=== PATIENT | female | born 1995 | race African-American/Black ===

== ENCOUNTER 2017-12-24 09:21 | Emergency (ER) | payer OTHER ==
[2017-12-24 09:32] VITALS: BP 116/78; PULSE 57; TEMP 97.5; BMI 37.3
--- NOTE | 2017-12-24 10:18 | PDOC ---
History of Present Illness - General Chief Complaint: Headache Stated Complaint: NAUSEA, HEADACHE Time Seen by Provider: 12/24/17 09:51 History Source: Patient Exam Limitations: No Limitations - History of Present Illness Initial Comments: 12/24/17 10:12 The patient is a 22F with a PMH of asthma who presents to the ER complaining of nausea, abdominal pain, and headache. The patient states that she's had constant (possibly intermittent) nausea x 2 weeks. She believes that she might have caught a "stomach bug" from her son who had nausea, vomited once, and felt better. The patient denies any vomiting. She also complains of sharp periumbilical abdominal pain, intermittent, worse with milk and and spicy foods , and not alleviated by anything. The patient also complains about a headache that is constant, 3 days, bitemporal, and not exacerbated or alleviated by anything. Of note, she states that she has worked the past 3 overnights Past History - Past Medical History Allergies/Adverse Reactions: Allergies Allergy/AdvReac Type Severity Reaction Status Date / Time No Known Allergies Allergy Verified 12/24/17 09:29 Home Medications: Ambulatory Orders Doxycycline Hyclate 100 mg PO BID #13 tablet 12/24/17 Ondansetron [Zofran *Odt*] 8 mg SL TID #20 od.tablet 12/24/17 Polyethylene Glycol 3350 [Miralax (For Daily Use) -] 17 gm PO DAILY #1 bottle COPD: No Other medical history: syncope - Immunization History Immunization Up to Date: Yes - Suicide/Smoking/Psychosocial Hx Smoking History: Never smoked Have you smoked in the past 12 months: No Information on smoking cessation initiated: No Hx Alcohol Use: No Substance Use Type: None Review of Systems - Review of Systems Able to Perform ROS?: Yes Comments:: 12/24/17 10:59 GENERAL/CONSTITUTIONAL: No fever or chills. No weakness. HEAD, EYES, EARS, NOSE AND THROAT: No change in vision. No ear pain or discharge. No sore throat. CARDIOVASCULAR: No chest pain, palpitations, or lightheadedness. RESPIRATORY: No cough, wheezing, shortness of breath, or hemoptysis. GASTROINTESTINAL: Positive for nausea and abdominal pain. No vomiting, diarrhea , or constipation. GENITOURINARY: No dysuria, frequency, hematuria, or change in urination. MUSCULOSKELETAL: No joint or muscle swelling or pain. No neck or back pain. SKIN: No rash or lesions. NEUROLOGIC: Positive for headache. No numbness, tingling, weakness, loss of consciousness, or change in strength/sensation. ENDOCRINE: No increased thirst. No abnormal weight change. HEMATOLOGIC/LYMPHATIC: No anemia, easy bleeding, or history of blood clots. ALLERGIC/IMMUNOLOGIC: No hives or skin allergy. Is the patient limited [place]ian proficient: No *Physical Exam - Vital Signs Last Vital Signs Temp Pulse Resp BP Pulse Ox 97.5 F L 57 L 18 116/78 100 12/24/17 09:29 12/24/17 09:29 12/24/17 09:29 12/24/17 09:29 12/24/17 09:29 - Physical Exam Comments: 12/24/17 11:00 GENERAL: Well developed, well nourished. Awake and alert. No acute distress. HEENT: Normocephalic, atraumatic. Hearing grossly normal. Moist mucous membranes. PERRLA, EOMI. No conjunctival pallor. Sclera are non-icteric. NECK: Supple. Full ROM. CARDIOVASCULAR: Regular rate and rhythm. No murmurs, rubs, or gallops. PULMONARY: No evidence of respiratory distress. Lungs clear to auscultation bilaterally. No wheezing, rales or rhonchi. ABDOMINAL: Soft. Tenderness to deep palpation in b/l lower quadrants. Non- distended. No rebound or guarding. GENITOURINARY: No CVA tenderness bilaterally. PELVIC: Normal external genitalia. B/l adnexal tenderness with mild CMT. MUSCULOSKELETAL: Normal range of motion at all joints. No bony deformities or tenderness. EXTREMITIES: No cyanosis. No clubbing. No edema. No calf tenderness. SKIN: Warm and dry. Normal capillary refill. No rashes. No jaundice. NEUROLOGICAL: Alert, awake, appropriate. Cranial nerves 2-12 intact. Normal speech. Gait is normal without ataxia. PSYCHIATRIC: Cooperative. Good eye contact. Appropriate mood and affect. ED Treatment Course - LABORATORY CBC & Chemistry Diagram: 12/24/17 11:00 12/24/17 11:00 Medical Decision Making - Medical Decision Making 12/24/17 11:02 The patient is a 22F with a PMH of asthma who presents with multiple complaints including abdominal pain, nausea, and headache. Pelvic exam reveals diffuse tenderness. Will order CTAP with contrast. Pending labs and imaging. Will also treat for PID but I am concerned for appendicitis as well. 12/24/17 11:59 CBC, CMP, and UA negative. Pending CTAP. 12/24/17 13:32 CTAP Read: No definite CT findings of acute pathology are identified. A small 1.2 x 0.2 cm right renal intracortical elliptical shaped focus is seen probably representing scarring as a result of previous inflammation/infection and less likely representing acute pyelonephritis. Correlate clinically. A nonspecific 2 x 2 x 1.7 cm mildly irregular soft tissue nodule is noted within the anterior pelvic wall in a slightly left paramedian position 5 to 6 cm below the level umbilicus - ? desmoid tumor (versus other less common lesions such as nerve sheath tumor, sarcoma, metastatic disease). No prior CT/MRI studies are available at this facility for direct comparison. An IUD is noted in place which appears somewhat low in position within the uterine cavity. TELEPHONE QUOTATION CLERK consultation is suggested. Will discuss findings with pt and encourage TELEPHONE QUOTATION CLERK and PCP f/u. *DC/Admit/Observation/Transfer Diagnosis at time of Disposition: Abdominal pain Qualifiers: Abdominal location: periumbilical Qualified Code(s): R10.33 - Periumbilical pain - Discharge Dispostion Disposition: HOME Condition at time of disposition: Stable Decision to Admit order: No - Prescriptions Prescriptions: Doxycycline Hyclate 100 mg PO BID #13 tablet Ondansetron [Zofran *Odt*] 8 mg SL TID #20 od.tablet Polyethylene Glycol 3350 [Miralax (For Daily Use) -] 17 gm PO DAILY #1 bottle - Referrals Referrals: Jazmyne Ivy [Primary Care Provider] - - Patient Instructions Printed Discharge Instructions: DI for Abdominal Pain-Adult Additional Instructions: Please follow up with your primary care physician in 2-3 days. Also follow up with your TELEPHONE QUOTATION CLERK next week. Please return to the ER if you have any signs or symptoms of chest pain, shortness of breath, uncontrollable fever, chills, nausea, vomiting, numbness, tingling, or weakness in any part of your body, changes in vision, or slurred speech. Please take your medications as prescribed. Use the zofran as needed for nausea. Please return to the ER if symptoms persist, worsen, or new symptoms arise. Your IUD was noted to be a little low in your uterus. Please let your TELEPHONE QUOTATION CLERK know about this during your visit to adjust it. - Post Discharge Activity Forms/Work/School Notes: Back to Work
[2017-12-24] MEDS ORDERED: ONDANSETRON 4 MG/2 ML VIAL IVPUSH ONE ×2 (11:04→13:01)
[2017-12-24] MEDS ORDERED: DOXYCYCLINE HYCLATE 100 MG CAPSULE PO ONE ×2 (11:06→11:34)
[2017-12-24 11:16] LABS: BASO % 0.4 % (0-2.0); EOS % 3.5 % (0-4.5); HEMATOCRIT 35.9 % (32.4-45.2); HEMOGLOBIN 12.3 GM/dL (10.7-15.3); LYMPH % 29.7 % (8-40); MCH 28.6 pg (25.7-33.7); MCHC 34.2 g/dl (32.0-36.0); MEAN CELL VOLUME 83.6 fl (80-96); MEAN PLT VOLUME 9.1 fl (7.5-11.1); MONO % 7.8 % (3.8-10.2); NEUT % 58.6 % (42.8-82.8); PLATELET COUNT 315 K/MM3 (134-434); RBC 4.29 M/mm3 (3.60-5.2); RDW 14.4 % (11.6-15.6); WHITE BLOOD COUNT 9.7 K/mm3 (4.0-10.0)
[2017-12-24 11:18] LABS: URINE APPEARANCE CLEAR; URINE BILIRUBIN NEGATIVE (<2.0 mg/dL); URINE COLOR LTYELLOW; URINE GLUCOSE (UA) NEGATIVE (NEGATIVE); URINE KETONE NEGATIVE (NEGATIVE); URINE LEUK ESTERASE NEGATIVE (NEGATIVE); URINE NITRITE NEGATIVE (NEGATIVE); URINE PROTEIN NEGATIVE (NEGATIVE)
[2017-12-24] MEDS ORDERED: LIDOCAINE HCL/PF 1% SDV 5ML VIAL ONE (11:34)
[2017-12-24] MEDS ORDERED: ONDANSETRON 4 MG/2 ML VIAL ONE ×2 (11:34→11:40)
[2017-12-24] MEDS ORDERED: cefTRIAXone SODIUM 1 GM VIAL ONE (11:34)
[2017-12-24 11:42] LABS: ALK PHOS 100 U/L (45-117); ANION GAP 7 (8-16); BILIRUBIN,TOTAL 0.2 mg/dL (0.2-1.0); BLOOD UREA NITROGEN 12 mg/dL (7-18); CALCIUM 8.9 mg/dL (8.5-10.1); CHLORIDE 106 mmol/L (98-107); CO2 27 mmol/L (21-32); CREATININE 0.9 mg/dL (0.55-1.02); GLUCOSE,RANDOM 95 mg/dL (74-106); LIPASE 136 U/L (73-393); SGOT/AST 9 U/L (15-37); SGPT/ALT 15 U/L (12-78); SODIUM 140 mmol/L (136-145); TOT PROT 8.1 g/dl (6.4-8.2)
[2017-12-24 11:53] LABS: EPI CELLS RARE /HPF (FEW); URINE MUCUS RARE
--- NOTE | 2017-12-24 12:54 | PDOC ---
Attending Attestation - Resident Resident Name: Ronaldo Ordaz - ED Attending Attestation I have performed the following: I have examined & evaluated the patient, The case was reviewed & discussed with the resident, I agree w/resident's findings & plan, Exceptions are as noted - HPI HPI: 12/24/17 12:48 "The patient is a 22 year old female, with a significant past medical history of asthma, who presents to the emergency department with, nausea, abdominal pain , and headache. She describes her abdominal pain as going on for the past two weeks, initially constant and now intermittent in nature, localized to the periumbilical region with associated nausea without emesis. She reports her abdominal pain to worsen when eating spicy food and drinking milk. She reports 3 days of bitemporal headache. She reports taking Ibuprofen, without relief. She believes her headaches is due to working the past 3 overnights. Pt denies thunderclap, denies worst headache of life, denies neck stiffness, denies F/C. She denies recent fevers, chills, or dizziness. She denies recent vomit, diarrhea or constipation. She denies recent dysuria, frequency, urgency or hematuria. She denies recent chest pain or shortness of breath. Allergies: NKA Past surgical history: None reported. Social history: Nonsmoker. Denies EtOH use and recreational drug use. Primary Care Physician: Dr. Jazmyne Ivy " - Physicial Exam PE: 12/24/17 12:49 "GENERAL: Awake, alert, and fully oriented, in no acute distress. HEAD: No signs of trauma EYES: PERRLA, EOMI, sclera anicteric, conjunctiva clear ENT: Auricles normal inspection, hearing grossly normal, nares patent, oropharynx clear without exudates. Moist mucosa NECK: Nontender, no stepoffs, Normal ROM, supple, no lymphadenopathy, JVD, or masses LUNGS: Breath sounds equal, clear to auscultation bilaterally. No wheezes, and no crackles HEART: Regular rate and rhythm, normal S1 and S2, no murmurs, rubs or gallops ABDOMEN: + RLQ TTP, normoactive bowel sounds. No guarding, no rebound. No masses EXTREMITIES: Normal range of motion, no edema. No clubbing or cyanosis. No cords, erythema, or tenderness NEUROLOGICAL: Cranial nerves II through XII intact. 5/5 strength and sensation in all extremities, Normal speech, normal gait, normal cerebellar function SKIN: Warm, Dry, normal turgor, no rashes or lesions noted. : + CMT, no vaginal discharge or bleeding, os closed, no adnexal masses - Medical Decision Making 12/24/17 12:50 22 F with abdominal pain and headache. Pt with + RLQ tenderness and + CMT. Concerning for PID, will tx empirically with ceftriaxone/doxy. Will also need to r/o acute appy. - Labs, UA, UPT - CTAP - Ceftriaxone + doxy 12/24/17 13:50 Labs, CT unremarkable. No ovarian masses or cysts to suggest torsion as etiology of pt's pain. Pt reassessed - states she feels much better. Headache has resolved completely with meds. Abdominal exam with no tenderness at this time. Pt is well appearing, with normal vitals. Clinically stable for DC at this time. I discussed the physical exam findings, ancillary test results and final diagnoses with the patient. I answered all of the patient's questions. The patient was satisfied with the care received and felt comfortable with the discharge plan and treatment plan. The patient agrees to follow up with the primary care physician within 24-72 hours. <Kalyan Chappell - Last Filed: 12/25/17 09:34> Attestations - Attestations 12/24/17 17:54 Documentation prepared by Marco Antonio Nguyen, acting as medical lab specialist for Kalyan Chappell MD. <Marco Antonio Nguyen - Last Filed: 12/24/17 17:54>
--- NOTE | 2017-12-24 15:36 | EKG ---
Test Reason : Blood Pressure : / mmHG Vent. Rate : 066 BPM Atrial Rate : 066 BPM P-R Int : 140 ms QRS Dur : 080 ms QT Int : 398 ms P-R-T Axes : 044 013 030 degrees QTc Int : 417 ms SINUS RHYTHM WITH MARKED SINUS ARRHYTHMIA OTHERWISE NORMAL ECG WHEN COMPARED WITH ECG OF 15-JUL-2007 18:26, PREVIOUS ECG IS PRESENT Confirmed by KAYLEE MARTINEZ, ANNALISA ([id number]) on 12/24/2017 3:35:41 PM Referred By: Confirmed By:ANNALISA PAGE MD
== END 2017-12-24 14:12 | disposition home or self-care (01) ==
LOC: JER 09:21
PROC: 3E02329 Introduction of Other Anti-infective into Muscle, Percutaneous Approach (ICD-10-PCS; principal; 2017-12-24)
PROC: 3E033GC Introduction of Other Therapeutic Substance into Peripheral Vein, Percutaneous Approach (ICD-10-PCS; 2017-12-24)
DX: N73.8 Other specified female pelvic inflammatory diseases (principal)
CPT/HCPCS: 36415; 74177-TC; 80053; 81003; 81015; 83690; 84703; 85025; 93005; 93010; 96372; 96374; 99281-25